=== PATIENT | female | born 1975 | race African-American/Black ===

== ENCOUNTER 2018-07-06 11:38 | Emergency (ER) | payer BC ==
[~2018-07-06] VITALS: Ht 175.3 cm; Wt 68.0 kg
[2018-07-06] MEDS ORDERED: ADVIL PO (11:46)
--- NOTE | 2018-07-06 12:03 | NUR ---
Patient discharged to home in stable conditon. Written and verbal after care instructions given. Patient verbalizes understanding of instructions.
[2018-07-06 12:04] VITALS: BP 115/74
== END 2018-07-06 12:05 | disposition home or self-care (01) ==
LOC: ER 11:38
DX: S16.1XXA Strain of muscle, fascia and tendon at neck level, initial encounter (principal); M54.5 Low back pain; Z79.899 Other long term (current) drug therapy; V89.2XXA Person injured in unspecified motor-vehicle accident, traffic, initial encounter; Y93.89 Activity, other specified; Y92.89 Other specified places as the place of occurrence of the external cause; Y99.8 Other external cause status
CPT/HCPCS: A4663

== ENCOUNTER 2023-11-01 06:52 | Emergency (ER) | payer BC ==
[~2023-11-01] VITALS: Ht 175.3 cm; Wt 74.8 kg
[~2023-11-01 06:52] MED LIST: ADVIL PO
[2023-11-01] MEDS ORDERED: IBUPROFEN 600 MG TABLET ONE (07:28)
[2023-11-01] MEDS: IBUPROFEN 600 MG TABLET PO ONE (07:29)
[2023-11-01 08:24] VITALS: BP 133/78; TEMP 98; O2SAT 99
[2023-11-01] MEDS ORDERED: IBUP-1955 PO (08:27)
== END 2023-11-01 08:30 | disposition home or self-care (01) ==
LOC: ER 07:05
DX: S90.121A Contusion of right lesser toe(s) without damage to nail, initial encounter (principal); Z79.899 Other long term (current) drug therapy; W20.8XXA Other cause of strike by thrown, projected or falling object, initial encounter; Y93.89 Activity, other specified; Y92.89 Other specified places as the place of occurrence of the external cause; Y99.8 Other external cause status
CPT/HCPCS: 73630; A4606; A4663